=== PATIENT | male | born 1995 | race Caucasian/White ===

== ENCOUNTER → 2017-03-15 | Outpatient (CLI) | payer OTHER | LOC: BMCIMAGING 16:11 | PROVIDERS: ATTEND Emergency Medicine | DX: M54.2 Cervicalgia (principal) ==

== ENCOUNTER 2017-12-09 14:27 | Emergency (ER) | payer OTHER ==
[2017-12-09 14:50] VITALS: TEMP 97.7
[2017-12-09] MEDS ORDERED: TDAP ADULT 0.5 ML INJ (BOOSTRIX) IM ONE (15:01)
--- NOTE | 2017-12-09 15:04 | EDPHY ---
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 No paresthesia. PHYSICAL EXAM (Prior to examination, patient consented to physical exam, hands were washed and my usual and customary physical exam procedures followed) 1) GENERAL: Well-developed, well-nourished, alert and oriented. Appears to be in no acute distress. 2) HEAD: Normocephalic 3) HEENT: sclera anicteric 4) LUNGS: Breathing comfortably. 5) SKIN: Skin avulsion to the left 4th digit distal phalanx radial aspect actively bleeding 6) MUSCULOSKELETAL: FDP, FDS intact. Extensor function intact at the MCP PIP D IP 7) NEUROLOGIC: Full sensation distally Smoking Status: Never smoked Constitutional: Initial Vital Signs Temperature (C) 36.5 C 12/09/17 14:48 Heart Rate 88 12/09/17 14:48 Respiratory Rate 16 12/09/17 14:48 Blood Pressure 112/73 12/09/17 14:48 O2 Sat (%) 92 12/09/17 14:48 O2 Delivery Mode Room Air Allergies/Adverse Reactions: No Known Allergies Allergy (Verified 12/09/17 14:48) Home Medications: Medication Instructions Recorded NK [No Known Home Meds] 12/09/17 MDM/Departure - MDM Procedures: Procedure: Wound management I explained the indications, risks and benefits for both laceration repair and anesthetic administration. Verbal consent was obtained from the patient. The skin avulsion left 4th digit was anesthetized using 0.5% bupivicaine without epinephrine digital nerve block. After anesthetic administered the patient was observed for a period of time and had no apparent adverse effects. The wound was cleaned, prepped, draped in normal sterile fashion and explored to its base. No foreign body seen, no foreign bodies palpated. There were no deep structures involved. Surgicel dressing applied resulting in hemostasis. Patient tolerated procedure well - Depart Disposition: Home, Routine, Self-Care Clinical Impression: Skin avulsion left 4th digit Condition: Good Instructions: Skin Avulsion (ED) Additional Instructions: Return to the ER if you develop redness, swelling, discharge, warmth to the wound, red streaks going up your arm, or any other symptoms that concern you. Stand Alone Forms: Work Comp Follow Up Referrals: Follow-up, with your work comp provider in 2 days [Other] - As per Instructions
[2017-12-09 15:57] VITALS: BP 115/83; PULSE 80; RESP 14; O2SAT 96
== END 2017-12-09 15:57 | disposition home or self-care (01) ==
PROC: 3E0T3BZ Introduction of Anesthetic Agent into Peripheral Nerves and Plexi, Percutaneous Approach (ICD-10-PCS; principal; 2017-12-09)
DX: S61.205A Unspecified open wound of left ring finger without damage to nail, initial encounter (principal); Z23 Encounter for immunization; W26.8XXA Contact with other sharp object(s), not elsewhere classified, initial encounter; Y92.89 Other specified places as the place of occurrence of the external cause; Y99.0 Civilian activity done for income or pay; Y93.89 Activity, other specified